=== PATIENT | female | born 1985 | race Caucasian/White ===

== ENCOUNTER 2019-11-02 05:47 | Inpatient (IN) | payer OTHER ==
[2019-11-02] VITALS (20 sets, daily range): BP systolic 109–134; BP diastolic 55–75
[~2019-11-02] VITALS: Ht 165.1 cm; Wt 87.0 kg
[2019-11-02] MEDS ORDERED: D5 LR IV SOLUTION 1,000 ML IV ONE (05:55)
--- NOTE | 2019-11-02 05:55 | NUR ---
ROCIO KAUR presented to unit via ambulatory from ED, accompanied by s.o., with c/o INDUCTION. ROCIO KAUR weighed, gowned, voided, and to bed. EFHM and TOCO applied, VS taken. ROCIO KAUR oriented to bed controls, call light, TV, heat, and A/C controls.
[2019-11-02] MEDS ORDERED: OXYTOCIN PRE-MIX DRIP 500 ML IV SCH ×2 (05:58→09:44)
[2019-11-02] MEDS ORDERED: D5 LR IV SOLUTION 1,000 ML IV SCH (05:58)
[2019-11-02] MEDS ORDERED: CLINDAMYCIN 900 MG/50 ML IVPB 50 ML IV SCH (06:00)
[2019-11-02] MEDS ORDERED: MINERAL OIL CONCENTRATE 99.9% 15 ML UDC TOP PRN (06:00)
[2019-11-02] MEDS ORDERED: CATHETER FLUSH 10 ML SYR IV SCH ×2 (06:00→14:00)
[2019-11-02 06:57] LABS: BASOPHILS % (AUTO) 0 % (0-10); EOSINOPHILS # (AUTO) 0.1 10^3/uL (0.0-0.3); EOSINOPHILS % (AUTO) 1 % (0-10); HEMATOCRIT 37 % (35-52); HEMOGLOBIN 12.4 G/DL (11.5-16.0); LYMPHOCYTES # (AUTO) 1.6 X 10^3 (1.0-4.0); LYMPHOCYTES % (AUTO) 18 % (12-44); MEAN CORPUSCULAR HEMOGLOBIN 31 PG (25-34); MEAN CORPUSCULAR HGB CONC 34 G/DL (32-36); MEAN CORPUSCULAR VOLUME 91 FL (80-99); MEAN PLATELET VOLUME 10.7 FL (7.4-10.4); MONOCYTES # (AUTO) 0.6 X 10^3 (0.0-1.0); MONOCYTES % (AUTO) 7 % (0-12); NEUTROPHILS # (AUTO) 6.4 X 10^3 (1.8-7.8); NEUTROPHILS % (AUTO) 74 % (42-75); PLATELET COUNT 139 10^3/uL (130-400); RED CELL DISTRIBUTION WIDTH 14.7 % (10.0-14.5); WHITE BLOOD COUNT 8.7 10^3/uL (4.3-11.0)
--- NOTE | 2019-11-02 07:44 | History & Physical-OB/GYN ---
History of Present Illness History of Present Illness Reason for visit/HPI Ms. Davis, A0 at 40 3/7 weeks, presents to Labor & Delivery for Pitocin Induction of Labor. Date of Admission Nov 02, 2019 at 05:47 Date Seen by a Provider: Nov 02, 2019 Time Seen by a Provider: 07:05 I consulted on this patient on 11/02/19 07:39 Attending Physician Luan Ron DO Admitting Physician Luan Ron DO Consult Allergies and Home Medications Allergies Coded Allergies: Penicillins (Verified Allergy, Unknown, 11/02/19) Patient Home Medication List Home Medication List Reviewed: Yes Past Hnmdjae-Rrwczt-Ycpthz Hx Patient Social History Marrital Status: Number of Children: 1 Number of living children: 1 Employed/Student: employed Alcohol Use: Denies Use Recent Foreign Travel: No Contact w/other who traveled: No Reproductive System : Yes Expected Date of Delivery: Oct 30, 2019 Hx : 2 Hx Para: 1 Hx Total # of Abortions (Spona: 0 Hx Reproductive Disorders: No Sexually Transmitted Disease: No HIV/AIDS: No Genitourinary No Musculoskeletal No Endocrine History of Endocrine Disorders: No HEENT History of HEENT Disorders: No Psychosocial History of Psychiatric Problem: No Integumentary History of Skin or Integumenta: No Blood Transfusions History of Blood Disorders: No Review of Systems Constitutional: see HPI Physical Exam Physical Exam Vital Signs Capillary Refill : Labs Laboratory Tests 11/02/19 06:46: White Blood Count 8.7, Red Blood Count 4.02L, Hemoglobin 12.4, Hematocrit 37, Mean Corpuscular Volume 91, Mean Corpuscular Hemoglobin 31, Mean Corpuscular Hemoglobin Concent 34, Red Cell Distribution Width 14.7H, Platelet Count 139, Mean Platelet Volume 10.7H, Neutrophils (%) (Auto) 74, Lymphocytes (%) (Auto) 18, Monocytes (%) (Auto) 7, Eosinophils (%) (Auto) 1, Basophils (%) (Auto) 0, Neutrophils # (Auto) 6.4, Lymphocytes # (Auto) 1.6, Monocytes # (Auto) 0.6, Eosinophils # (Auto) 0.1, Basophils # (Auto) 0.0 General Appearance: No Apparent Distress, WD/WN Respiratory: Chest Non Tender, Lungs Clear, Normal Breath Sounds Cardiovascular: Regular Rate, Rhythm, No Murmur Abdominal: normal bowel sounds, non tender Labia: WNL Vagina: WNL Cervix: WNL Cervix OS: open (3 cm/60%/-3 Vertex/Intact) Uterus: WNL, Enlarged (Gravid) Extremity: Normal Inspection, Non Tender, No Calf Tenderness Assessment/Plan Assessment and Plan Intrauterine at 40 3/7 weeks 2. GBS Positive Plan: Pitocin Induction of Labor. AROM--meconium stained amniotic fluid. Pain management per patient request. Expectant management. Admission Diagnosis Admission Status: Inpatient Order (span 2 midnights) Reason for Inpatient Admission: Pitocin Induction of Labor LUAN RON DO Nov 02, 2019 07:44
[2019-11-02] MEDS ORDERED: ONDANSETRON 4 MG/2 ML (SDV) Z0FRAN ONE (09:00)
[2019-11-02] MEDS ORDERED: LIDOCAINE 1% INJ 20 ML 20 ML VIAL ONE (09:28)
[2019-11-02] MEDS ORDERED: LIDOCAINE 1% INJ 20 ML 20 ML VIAL INJ ONE (09:30)
[2019-11-02] MEDS ORDERED: TETANUS,DIPTH,PERTUSS P/F (BOOSTRIX) 0.5 ML VIAL IM ONE (09:45)
[2019-11-02] MEDS ORDERED: MEASLES,MUMPS,RUBELLA 1 EA INJ SQ ONE (09:45)
[2019-11-02] MEDS ORDERED: WITCH HAZEL(TUCKS) 40 EA JAR TOP PRN (09:45)
[2019-11-02] MEDS ORDERED: BENZOCAINE/MENTHOL (DERMOPLAST) 60 ML CAN TP PRN (09:45)
--- NOTE | 2019-11-02 09:45 | NUR ---
0901: pt CO N/V, Zofran admin see eMAR. 0904: Pt requesting Iv pain meds. SVE by this RN. 8cm. Pt notified that she is unable to receive IV pain med due to advanced dilation. 0908: Pt states she feels like she needs to push and that baby is coming. 0909: Dr Ron called for delivery 0910: Dr Burch called for delivery 0911: Pt involuntary pushing. This RN at bedside, moderate/intense coaching. 0916: Head delivered, this RN and Melissa Denis RN at bedside. 2 nursing students at bedside also. 0917: Viable female infant delivered vaginally at this time with ifnant right hand up by face. Infant caught/delivered by this RN, Melissa RN at bedside. Infant suctioned with bulb suction, dried, stimulated. cry vigorous, good tone, good color. 1 minute 9. 0918: Cord clamped and cut by this RN. to preheated infant warmer with Melissa Denis RN. Placenta is undelivered at this point. Scant bleeding noted. Mother states she feels fine. Infant doing well. 0923: Dr Ron at bedside. RN updated Dr on current status/report. 0925: Cord blood drawn by Dr Ron. 0928: Placenta delivered intact at this time. Pitocin started per Dr Ron verbal order. 0933: Local admin to perineum by Dr Ron for repair. Pt has 2nd degree laceration which was repaired by Dr Ron. 0940: Pericare and linen change by Dr Ron. Room cleaned up after delivery. Placenta and cord blood sent to lab by RN. 0945: Recovery period begins at this time. See PP Recovery note.
--- NOTE | 2019-11-02 09:50 | OB Labor & Delivery Record ---
Vag Delivery Note Vag Delivery Note Date of Delivery: 11/02/19 Preoperative Diagnosis: Leanne Villagomez is a (34 /Para 2 / 1, Gestational Age (wks)40 4/7 Postoperative Diagnosis: Same and Precipitous Delivery Surgeon: KADE JAMES Manpower Development Manager: [None] Anesthesia: [Local] Delivery Type: [Precipitous Vaginal Delivery] Findings: [Female ] Viable [Female] , apgars [8, 9], weight [8 lb 11 oz] Lacerations: Second degree perineal laceration and standard repair Intact placenta with 3 vessel cord. No nuchal cord, body cord or shoulder dystocia Estimated Blood Loss: [300] ml Complications: None Condition: Stable Description of Procedure: The patient is a 34 year old female who presented [for Pitocin Induction of Labor]. She was admitted and informed consent was obtained. Her labor course was remarkable for [precipitous vaginal delivery via the nursing staff] She progressed to complete dilatation and began to push, unfiltered (no anesthesia)The 's head was delivered atraumatically via the nursing staff. The shoulders and remainder of the infant's body were then delivered without difficulty. Upon delivery, the head was held below the level of the perineum and the mouth and nares were bulb suctioned. The cord was doubly clamped and cut and the infant was handed off to the pediatric staff where NRP protocol was followed . I arrived and assumed control where an intact placenta with 3-vessel cord delivered via Reed and there was found to be minimal bleeding.~ Vigorous fundal massage was performed and the fundus was found to be firm. IV oxytocin was given. Examination of the vagina and perineum revealed a [second degree perineal] laceration repaired in the usual fashion with 2-0 and 3-0 vicryl almendarez ture. Following the repair, sponge, instrument and needle counts were correct. Mom and baby were both in stable condition in the labor suite. Vitals - Labs Vital Signs - I&O Vital Signs Date Time Temp Pulse Resp B/P (MAP) Pulse Ox O2 Delivery O2 Flow Rate FiO2 11/02/19 07:45 67 109/67 (81) Room Air 11/02/19 07:30 73 111/75 (87) Room Air 11/02/19 07:15 36.1 72 16 115/73 (87) Room Air Labs Laboratory Tests 11/02/19 06:46: White Blood Count 8.7, Red Blood Count 4.02L, Hemoglobin 12.4, Hematocrit 37, Mean Corpuscular Volume 91, Mean Corpuscular Hemoglobin 31, Mean Corpuscular Hemoglobin Concent 34, Red Cell Distribution Width 14.7H, Platelet Count 139, Mean Platelet Volume 10.7H, Neutrophils (%) (Auto) 74, Lymphocytes (%) (Auto) 18, Monocytes (%) (Auto) 7, Eosinophils (%) (Auto) 1, Basophils (%) (Auto) 0, Neutrophils # (Auto) 6.4, Lymphocytes # (Auto) 1.6, Monocytes # (Auto) 0.6, Eosinophils # (Auto) 0.1, Basophils # (Auto) 0.0 KADE JAMES DO Nov 02, 2019 09:50
[2019-11-02] MEDS: ACETAMINOPHEN 500 MG TAB (TYLENOL) PO SCH ×3 (11:41→20:15)
[2019-11-02] MEDS: IBUPROFEN 800 MG (MOTRIN) TAB PO SCH ×2 (11:41→20:15)
[2019-11-02] MEDS: DIBUCAINE (NUPERCAINAL) 1% OINT 30 GM TOP PRN (11:42)
--- NOTE | 2019-11-02 11:45 | NUR ---
0945: PP recovery period begins at this time. Fundus firm, midline, level with umbilicus, Scant bleeding noted. Pt denies needs or CO at this time. VSS. Pt holding infant, attempting to breastfeed/latch. Call light within reach. at bedside. 1000: Fundus firm, midline, level with umbilicus, Scant bleeding noted. Pt denies needs or CO at this time. VSS. Pt holding infant, attempting to breastfeed/latch. Guerda ESTRADA at bedside for assistance. Call light within reach. at bedside. 1015: Fundus firm, midline, level with umbilicus, Light bleeding noted. Pt denies needs or CO at this time. VSS. Pt at this time. Call light within reach. at bedside. 1030: Fundus firm, midline, level with umbilicus, Light bleeding noted. Pt denies needs or CO at this time. VSS. Pt at this time. Call light within reach. at bedside 1045: Fundus firm, midline, level with umbilicus, moderate bleeding noted a tthis time. Pt had moderate gush with fundus check. Pt denies needs or CO at this time. VSS. Pt holding skin to skin at this time. Call light within reach. at bedside 1100: Fundus firm, midline, level with umbilicus, Light bleeding noted. Pt denies needs or CO at this time. VSS. Pt holding infant skin to skin at this time. Call light within reach. at bedside 1115: Fundus firm, midline, level with umbilicus, Light bleeding noted. Pt denies needs or CO at this time. VSS. Pt holding skin to skin at this time. Call light within reach. at bedside 1130: Fundus firm, midline, level with umbilicus, Light bleeding noted. Pt denies needs or CO at this time. VSS. Pt holding skin to skin at this time. Call light within reach. at bedside 1145: Fundus firm, midline, level with umbilicus, scant bleeding noted. Pt denies needs or CO at this time. VSS. Baby swaddled by RN and being held by FOB. Pt walked to bathroom. Pericare assistance,education, and demonstration by this RN. 1205: Pt walked to PP room 309 at this time with infant being pushed in crib.
--- NOTE | 2019-11-02 20:15 | NUR ---
initial shift assessment completed, see interventions for further. POC reviewed, states understanding.
[2019-11-02] MEDS: DOCUSATE SODIUM 100 MG (COLACE) CAP PO SCH (21:50)
[2019-11-03 02:18] VITALS: BP 125/63
[2019-11-03 05:25] LABS: BASOPHILS % (AUTO) 0 % (0-10); EOSINOPHILS # (AUTO) 0.1 10^3/uL (0.0-0.3); EOSINOPHILS % (AUTO) 1 % (0-10); HEMATOCRIT 33 % (35-52); HEMOGLOBIN 11.2 G/DL (11.5-16.0); LYMPHOCYTES # (AUTO) 1.8 X 10^3 (1.0-4.0); LYMPHOCYTES % (AUTO) 16 % (12-44); MEAN CORPUSCULAR HEMOGLOBIN 31 PG (25-34); MEAN CORPUSCULAR HGB CONC 34 G/DL (32-36); MEAN CORPUSCULAR VOLUME 91 FL (80-99); MEAN PLATELET VOLUME 10.7 FL (7.4-10.4); MONOCYTES # (AUTO) 0.8 X 10^3 (0.0-1.0); MONOCYTES % (AUTO) 8 % (0-12); NEUTROPHILS # (AUTO) 8.4 X 10^3 (1.8-7.8); NEUTROPHILS % (AUTO) 76 % (42-75); PLATELET COUNT 137 10^3/uL (130-400); RED CELL DISTRIBUTION WIDTH 14.3 % (10.0-14.5); WHITE BLOOD COUNT 11.1 10^3/uL (4.3-11.0)
[2019-11-03] MEDS ORDERED: OXYC5TAB96 PO (06:24)
[2019-11-03] MEDS ORDERED: DCS100C PO (06:24)
[2019-11-03] MEDS ORDERED: IBUP-1780 PO (06:24)
[2019-11-03] MEDS ORDERED: ACET-93 PO (06:24)
--- NOTE | 2019-11-03 06:30 | Discharge Summary ---
Diagnosis/Chief Complaint Date of Admission Nov 02, 2019 at 05:47 Date of Discharge November 03, 2019 Discharge Date: Nov 03, 2019 Discharge Time: 11:00 Admission Diagnosis Admission Diagnosis Intrauterine at 40 3/7 weeks 2. GBS Positive Discharge Diagnosis Intrauterine at 40 3/7 weeks--Precipitous Vaginal Delivery 2. GBS Positive Reason Hospital Visit Ms. Davis, A0 at 40 3/7 weeks, presents to Labor & Delivery for Pitocin Induction of Labor. Discharge Summary Hospital Course Was the Problem List Reviewed?: Yes Hospital Course Ms. Davis, A0 at 40 3/7 weeks, presented to Labor & Delivery for Pitocin Induction of Labor. She was known to be GBS Positive, consequently, antibiotics were started. I artificially ruptured her membranes, meconium stained. She progressed to complete rapidly, and delivered via the nursing staff. She sustained a second degree perineal laceration which was repaired in the normal sterile fashion. , she was started on oral medication and other comfort measures. The remainder of her hospitalization was unremarkable. I will discharge her to home with instructions, prescriptions, and a follow up appointment. Labs Laboratory Tests 11/02/19 06:46: Red Blood Count 4.02L, Red Cell Distribution Width 14.7H, Mean Platelet Volume 10.7H 11/03/19 05:17: Red Blood Count 3.61L, Mean Platelet Volume 10.7H, White Blood Count 11.1H, Hemoglobin 11.2L, Hematocrit 33L, Neutrophils (%) (Auto) 76H, Neutrophils # (Auto) 8.4H Procedures None. Discharge Physical Examination Allergies: Coded Allergies: Penicillins (Verified Allergy, Unknown, 11/02/19) Vitals & I&Os Vital Signs Date Time Temp Pulse Resp B/P (MAP) Pulse Ox O2 Delivery O2 Flow Rate FiO2 11/03/19 02:18 36.6 66 18 125/63 (83) 99 Room Air General Appearance: Alert, Oriented X3, Cooperative HEENT: Atraumatic Respiratory: Clear to Auscultation, Normal Air Movement Cardiovascular: Regular Rate, No Murmurs Abdominal: Normal Bowel Sounds, Soft Extremities: No Clubbing, No Cyanosis Skin: No Rashes Neuro: Normal Gait, Normal Speech Psych/Mental Status: Mental Status NL Discharge Home Medications Reviewed and agree with Discharge Medication list on patient's Discharge Instruction sheet Instructions to Patient/Family Please see electronic discharge instructions given to patient. Clinical Quality Measures DVT/VTE Risk/Contraindication: Risk Factor Score Per Nursin RFS Level Per Nursing on Admit: 1=Low/No VTE PPKADE SALAZAR DO Nov 03, 2019 06:29
[2019-11-03] MEDS ORDERED: PRENATAL VITAMIN 1 EA TAB PO SCH (07:00)
--- NOTE | 2019-11-03 07:24 | NUR ---
report given to SEAN Ghosh.
[2019-11-03] MEDS: DIBUCAINE (NUPERCAINAL) 1% OINT 30 GM TOP PRN (08:01)
[2019-11-03] MEDS: DOCUSATE SODIUM 100 MG (COLACE) CAP PO SCH (08:02)
[2019-11-03 08:30] VITALS: BP 110/76
== END 2019-11-03 10:15 | disposition home or self-care (01) | DRG 807 ==
LOC: LDRP 05:47
PROVIDERS: ADMIT Obstetrics & Gynecology; ATTEND Obstetrics & Gynecology
PROC: 10E0XZZ Delivery of Products of Conception, External Approach (ICD-10-PCS; principal; 2019-11-02)
PROC: 0KQM0ZZ Repair Perineum Muscle, Open Approach (ICD-10-PCS; 2019-11-02)
PROC: 3E033VJ Introduction of Other Hormone into Peripheral Vein, Percutaneous Approach (ICD-10-PCS; 2019-11-02)
DX: O48.0 Post-term pregnancy (principal); Z37.0 Single live birth; O99.824 Streptococcus B carrier state complicating childbirth; O77.0 Labor and delivery complicated by meconium in amniotic fluid; O62.3 Precipitate labor; O70.1 Second degree perineal laceration during delivery; Z3A.40 40 weeks gestation of pregnancy; Z23 Encounter for immunization
CPT/HCPCS: 36415; 85025; 86850; 86900; 86901; 90715